=== PATIENT | female | born 1990 | race Caucasian/White ===

== ENCOUNTER 2017-01-19 16:59 | Emergency (ER) | payer OTHER ==
[~2017-01-19] VITALS: Ht 167.6 cm; Wt 81.6 kg
[~2017-01-19 16:59] MED LIST: ALBU8.5H8 INH; ARIP2TAB35 PO; CEPH-264 PO; CIPR500T94 PO; HYDR-79 PO; ONDA4TAB10 PO
[2017-01-19 17:10] VITALS: BP 115/61
[2017-01-19] MEDS ORDERED: MUPI15CR TP (17:34)
[2017-01-19] MEDS ORDERED: FLUT30CR5 TP (17:34)
[2017-01-19] MEDS ORDERED: DIPH25CA58 PO (17:34)
--- NOTE | 2017-01-19 17:34 | PHYS DOC ---
Past History Past Medical History: Anxiety, Asthma, Depression Past Surgical History: , Other Additional Past Surgical Histo: reconstructive right elbow surgery, pelvic floor surgery reconstructive rig Alcohol Use: None Drug Use: None Adult General Chief Complaint Chief Complaint: WRIST PAIN HPI HPI Is a pleasant 26-year-old female with a three-week history of rash and recurrent infections to the dorsum of right hand and the left wrist. There are small 1- 2 cm lesions described as itchy patches over the right hand on the dorsum of the hand and the left wrist. They have been there for last 3 weeks getting progressively worse despite being treated with hydroperoxide and alcohol area and patient thinks that she is getting superficial cellulitis or infection over these wounds as they break. There are intensely initially associated with any joint pain or joint swelling, STDs diseases, fevers, chills , recent URI symptoms. Patient has used some anti-itching cream and cream provided by her primary care doctor for eczema with limited improvement. She denies any prior history of the same denies any IV drug use pain is worse with just direct pressure or scratching of the skin itself. Review of Systems Review of Systems Constitutional: Denies fever or chills [] Eyes: Denies change in visual acuity, redness, or eye pain [] HENT: Denies nasal congestion or sore throat [] Respiratory: Denies cough or shortness of breath [] Cardiovascular: No additional information not addressed in HPI [] GI: Denies abdominal pain, nausea, vomiting, bloody stools or diarrhea [] : Denies dysuria or hematuria [] Musculoskeletal: Denies back pain or joint pain [] Integument: Skin lesions on the dorsum of the right hand and at the left wrist. Neurologic: Denies headache, focal weakness or sensory changes [] Endocrine: Denies polyuria or polydipsia [] Allergies Allergies Allergies Coded Allergies Type Severity Reaction Last Updated Verified No Known Drug Allergies 07/18/15 No Physical Exam Physical Exam Constitutional: Well developed, well nourished, no acute distress, non-toxic appearance. [] Cardiovascular:Heart rate regular rhythm, no murmur [] Lungs & Thorax: Bilateral breath sounds clear to auscultation [] Skin: Warm, dry, erythematous rash with scabbing and or crusting. Back: No tenderness, no CVA tenderness. [] Extremities: Noted small areas 1-2 cm circular in nature on the radial surface of the left wrist with mild erythema no satellite lesions or vesicles noted. She has a similar rash located on the dorsum of the right hand approximately 1 cm circular lesion. No target lesions no circumferential or joint involvement. No palm involvement or evidence of intravenous drug use in the upper arms no Janeway's lesions or Osler's Neurologic: Alert and oriented X 3, normal motor function, normal sensory function, no focal deficits noted. [] Psychologic: Affect normal, judgement normal, mood normal. [] Current Patient Data Vital Signs Vital Signs Date Time Temp Pulse Resp B/P (MAP) Pulse Ox O2 Delivery O2 Flow Rate FiO2 01/19/17 17:10 97.9 100 16 96 EKG EKG [] Radiology/Procedures Radiology/Procedures [] Course & Med Decision Making Course & Med Decision Making Pertinent Labs and Imaging studies reviewed. (See chart for details) patient with evidence of eczema on her wrist and the dorsum of her right hand superficial localized cellulitis and infection associated with likely impetigo. Treat with localized steroid cream and Bactroban follow-up with her primary care doctor for referral to a flight engineer manager. Impression: Eczema with possible superficial cellulitis Disposition: PCP follow 24 hours placed on steroid cream and Bactroban with wound check in 24 hours. Dragon Disclaimer Dragon Disclaimer This chart was dictated in whole or in part using Voice Recognition software in a busy, high-work load, and often noisy Emergency Department environment. It may contain unintended and wholly unrecognized errors or omissions. Departure Departure: Impression: Primary Impression: Eczema Additional Impression: Impetigo Referrals: PCP,NO (PCP) Patient Instructions: Eczema, Impetigo Additional Instructions: Follow-up through PCP in 24 hours for wound check. Please return for any new or increasing symptoms despite treatment or if you any question concerns. Scripts Mupirocin Calcium (BACTROBAN) 15 Gm Cream..g. 1 TORRES TP TID, #30 GM Prov: KARLO FERGUSON MD 01/19/17 Diphenhydramine Hcl (BENADRYL) 25 Mg Capsule 25 MG PO QID for 7 Days, #28 CAP Prov: KARLO FERGUSON MD 01/19/17 Fluticasone Propionate (CUTIVATE) 30 Gm Cream..g. 1 TORRES TP BID, #60 GM 1 Refill Prov: KARLO FERGUSON MD 01/19/17 Problem Qualifiers KARLO FERGUSON MD January 19, 2017 17:34
== END 2017-01-19 17:40 | disposition home or self-care (01) ==
LOC: ER 16:59
DX: L30.9 Dermatitis, unspecified (principal); L01.00 Impetigo, unspecified; J45.909 Unspecified asthma, uncomplicated
CPT/HCPCS: 99282; 99283